=== PATIENT | male | born 1985 | race Caucasian/White ===

== ENCOUNTER 2017-06-07 10:16 | Emergency (ER) | payer SELFPAY ==
[2017-06-07 10:25] VITALS: BP 154/84
--- NOTE | 2017-06-07 10:41 | ER Document Report ---
ED General - General Chief Complaint: Toothache Stated Complaint: MOUTH PAIN Time Seen by Provider: 06/07/17 10:29 Information source: Patient Notes: Patient complains of severe frontal tooth pain. The pain is severe and radiates up into his face. It is worse when touched and better when left alone. It is constant. Patient denies any trouble with breathing or swallowing. No fevers. TRAVEL OUTSIDE OF THE [place] IN LAST 30 DAYS: No - Related Data Allergies/Adverse Reactions: No Known Allergies Allergy (Unverified 06/07/17 10:23) Past Medical History - General Information source: Patient - Social History Smoking Status: Current Every Day Smoker Frequency of alcohol use: Occasional Drug Abuse: None Family History: Reviewed & Not Pertinent Patient has suicidal ideation: No Patient has homicidal ideation: No Renal/ Medical History: Denies: Hx Peritoneal Dialysis Review of Systems - Review of Systems Constitutional: denies: Chills, Fever EENT: Nose pain, Nose congestion, Mouth swelling, Dental problem Respiratory: denies: Cough, Short of breath Gastrointestinal: denies: Nausea, Vomiting Physical Exam - Vital signs Vitals: Temp Pulse Resp BP Pulse Ox 98.2 F 74 16 154/84 H 98 06/07/17 10:23 06/07/17 10:23 06/07/17 10:23 06/07/17 10:23 06/07/17 10:23 Interpretation: Hypertensive - General General appearance: Appears well, Alert - HEENT Head: Normocephalic, Atraumatic Eyes: Normal. No: Pale conjunctiva Conjunctiva: Normal Pupils: PERRL Nasal: Swelling. No: Purulent discharge Mouth/Lips: Other - Upper lip has some moderate swelling. Patient has diffuse dental caries. Patient has some gum swelling adjacent to his anterior upper front teeth. No drainable abscesses appreciated. Mucous membranes: Moist Pharynx: Normal, Other - No abnormalities of the posterior pharynx is appreciated.. No: Erythema, Exudate Neck: Normal. No: Anterior cervical chain, Posterior cervical chain - Respiratory Respiratory status: No respiratory distress Chest status: Nontender Breath sounds: Normal Chest palpation: Normal - Cardiovascular Rhythm: Regular Heart sounds: Normal auscultation Murmur: No - Psychological Associated symptoms: Normal affect, Normal mood - Skin Skin Temperature: Warm Skin Moisture: Dry Skin Color: Normal Course - Vital Signs Vital signs: Temp Pulse Resp BP Pulse Ox 98.2 F 74 16 154/84 H 98 06/07/17 10:23 06/07/17 10:23 06/07/17 10:23 06/07/17 10:23 06/07/17 10:23 Discharge - Discharge Clinical Impression: Dental abscess Condition: Stable Disposition: HOME, SELF-CARE Instructions: [facility], Penicillin V K ([facility]), Oral Narcotic Medication ([facility]), Toothache ([facility]) Additional Instructions: Please seek dental care as soon as possible. Prescriptions: Oxycodone HCl/Acetaminophen [Percocet 5-325 mg Tablet] 1 - 2 tab PO Q4H PRN #15 tablet PRN Reason: Penicillin V Potassium [Penicillin Vk 500 mg Tablet] 500 mg PO BID #20 tablet
== END 2017-06-07 10:50 | disposition home or self-care (01) ==
LOC: ER 10:16
DX: K04.7 Periapical abscess without sinus (principal); K02.9 Dental caries, unspecified; K08.89 Other specified disorders of teeth and supporting structures; F17.200 Nicotine dependence, unspecified, uncomplicated; R09.81 Nasal congestion; J34.89 Other specified disorders of nose and nasal sinuses
CPT/HCPCS: 99282